=== PATIENT | female | born 1950 ===

== ENCOUNTER 2025-01-19 11:02 | Outpatient (AMB) | payer MEDICARE, OTHER, SELFPAY ==
--- OUTSIDE RECORDS SUMMARY | 2025-01-19 12:22 | XMS_ITS | Clinical Summary ---
Author Organization [facility] ity Address [address] [place] [address] Care Team Providers Care Nuclear Physics Professor Name Role Phone Unavailable Primary Care Provider Unavailabl e Social History Tobacco Use Types Packs/Day Years Used Date Smoking Tobacco: Never Smokeless Tobacco: Never Alcohol Use Standard Drinks/Week Comments Never 0 (1 standard drink = 0.6 oz pur e alcohol) Comments Unknown Sex and Gender Information Value Date Recorded Sex Assigned at Not on file Legal Sex Female 2:05 PM EST Gender Identity Not on file Sexual Orientation Not on file Obstetrics History Last Filed Vital Signs Vital Sign Reading Time Taken Comments Blood Pressure 154/90 11/03/2021 8:14 AM EDT Pulse 80 11/03/2021 8:14 AM EDT Temperature - - Respiratory Rate - - Oxygen Saturation - - Inhaled Oxygen Concentration - - Weight 81 kg (178 lb 9.6 oz) 11/03/2021 8:14 AM EDT Height - - Body Mass Index - - Plan of Treatment Health Maintenance Due Date Last Done Comments Breast Cancer Screening 1950 DTaP,Tdap,and Td Vaccines (1 - Tdap) 1970 Pneumococcal Vaccine: 50+ Ye ars (1 of 1 - PCV) 2001 Zoster Vaccines (1 of 2) 2001 Colorectal Cancer Screening: Colonoscopy 04/26/2022 Falls Risk Assessment 04/26/2022 Hepatitis C Screening 04/26/2022 Osteoporosis Screening (Bone Density Screening) 04/26/2022 Social Influencers of Health Screening 04/26/2022 COVID-19 Vaccine (1 - 2023-2 5 season) 2024 Depression Screening 05/28/2024 Influenza Vaccine (#1) 2025 RSV Immunization Adult Patie nts (1 - 1-dose 75+ series) 2026 HIB Vaccines Aged Out No longer eligi ble based on patient's age to complete this topic HPV Vaccines Aged Out No longer eligi ble based on patient's age to complete this topic Hepatitis A Vaccines Aged Out No long er eligible based on patient's age to complete this topic Hepatitis B Vaccines Aged Out No long er eligible based on patient's age to complete this topic IPV Vaccines Aged Out No longer eligi ble based on patient's age to complete this topic MMR Vaccines Aged Out No longer eligi ble based on patient's age to complete this topic Meningococcal ACWY Vaccine Aged Out N o longer eligible based on patient's age to complete this topic Meningococcal B Vaccine Aged Out No l onger eligible based on patient's age to complete this topic RSV Immunization Patients Un vera 20 months Aged Out No longer eligible b ased on patient's age to complete this topic Varicella Vaccines Aged Out No longer eligible based on patient's age to complete this topic Advance Directives Documents on File Type Date Recorded Patient [employer] Expl anation Health Care Decision (hx) 01/30/2014 AD CONN DIRECTIVE Health Care Decision (hx) 01/30/2014 AD CONN DIRECTIVE Health Care Decision (hx) 01/30/2014 AD CONN DIRECTIVE Health Care Decision (hx) 01/30/2014 AD CONN DIRECTIVE Health Care Decision (hx) 01/30/2014 AD CONN DIRECTIVE Health Care Decision (hx) 01/30/2014 AD CONN DIRECTIVE Health Care Decision (hx) 01/30/2014 AD CONN DIRECTIVE Health Care Decision (hx) 01/30/2014 AD CONN DIRECTIVE Health Care Decision (hx) 01/30/2014 AD CONN DIRECTIVE Health Care Decision (hx) 01/30/2014 AD CONN DIRECTIVE
--- OUTSIDE RECORDS SUMMARY | 2025-01-19 12:22 | XMS_ITS | Clinical Summary ---
Author Organization [facility], Address [address] [place] [id number] Care Team Providers Care Senior Systems Programmer Name Role Phone Nadeen Villasenor MD Primary Care Provider + [phone] Allergies Active Allergy Reactions Criticality Noted Date Comments Baclofen 08/24/2020 Clarithromycin 08/24/2020 Cefaclor 08/24/2020 Chlorthalidone 01/09/2022 Other reaction(s): dehydration/ arf Ciprofloxacin 08/24/2020 Metronidazole 08/24/2020 Glipizide 08/24/2020 Empagliflozin 08/24/2020 Metformin 08/24/2020 Sulfa Antibiotics 08/24/2020 Medications aspirin (ST MERCEDES) 81 MG EC tablet aspirin 81 mg tablet,delay ed release Active atorvastatin (LIPITOR) 20 MG tablet Take 20 mg by mouth 1 (one) time each day 08/02/2020 Active cyclobenzaprine (FLEXERIL) 10 MG tablet TAKE 1 TABLET BY MOUTH THREE TIMES A DAY NEEDED FOR SPASM FOR 14 DAYS 08/10/2020 Active Januvia 50 MG tablet Take 50 mg by mouth 1 (one) time each day 08/04/2020 Active Empagliflozin (Jardiance) 25 MG tablet Take 25 mg by mouth 1 (one) time each day in the morning Active Semaglutide,0.2 5 or 0.5MG/DOS, (Ozempic, 0.25 or 0.5 MG/DOSE,) 2 MG/1.5ML solution pen-injector Inject 0.5 mg under the skin per week Active valsartan (Diovan) 160 MG tablet Take 1 tablet (160 mg total) by mouth 1 (one) time each day 90 tablet 3 05/09/2024 Active Active Problems Problem Noted Date Diagnosed Date Diabetes mellitus 08/24/2020 Hypertension 08/24/2020 Hypercholesterolemia 08/24/2020 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/24/2020 Stage 3a chronic kidney disease 08/24/2020 Essential hypertension Diabetes mellitus without me ntion of complication, type II or unspecified type, not stated as uncontrolled Immunizations Immunization Administration Dates Next Due Influenza, Unspecified 03/24/2021,2019,04/08/2019,04/01/2018 ,04/06/2017 Pfizer SARS-COV-2 05/24/2021 Pneumococcal Conjugate 13-Valent 10/29/2017 Tdap 04/13/2016 Family History Medical History Relation Comments Coronary artery disease Brother Diabetes Brother Heart failure Father Cancer Mother Relation Status Comments Brother Father Mother Social History Tobacco Use Types Packs/Day Years Used Date Smoking Tobacco: Never Comments Unknown Sex and Gender Information Value Date Recorded Sex Assigned at Not on file Legal Sex Female 4:38 PM EST Gender Identity Not on file Sexual Orientation Not on file Last Filed Vital Signs Vital Sign Reading Time Taken Comments Blood Pressure 128/72 02/12/2024 2:05 PM EDT Pulse 70 02/12/2024 2:05 PM EDT Temperature - - Respiratory Rate - - Oxygen Saturation - - Inhaled Oxygen Concentration - - Weight 76.7 kg (169 lb) 08/14/2023 2:01 PM EDT Height - - Body Mass Index - - Plan of Treatment Upcoming Encounters Date Type Department Care Team (Late st Contact Info) Description 02/03/2025 1:45 PM EDT Office Visit [facility] [address] [place] [id number] Johnny Anderson, [address] [place] [address] Health Maintenance Due Date Last Done Comments Breast Cancer Screening 1950 Colorectal Cancer Screening: Annual FOBT 2000 Colorectal Cancer Screening: Colonoscopy 2000 Colorectal Cancer Screening: Sigmoidoscopy 2000 Pneumococcal Vaccine: 50+ Years (2 of 2 - PPSV23, PCV20, or PCV21) 12/24/2017 10/29/2017 Diabetes: Ophthalmology Exam 08/24/2020 Diabetes: Pedal Pulse Checked 08/24/2020 Diabetes: Sensory Foot Exam 08/24/2020 Diabetes: Visual Foot Exam 08/24/2020 Diabetes: Hemoglobin A1C 04/08/2022 01/06/2022, 05/28 Influenza Vaccine (#1) 2025 2, 03/24/2021, 03/15/2020, Additional history exists Pneumococcal Vaccine: Peds (0 to 5 Years) and At-Risk Patients (6 to 49 Years) Discontinued 10/29/2017 Hepatitis B Vaccine Aged Out No longe r eligible based on patient's age to complete this topic Procedures Procedure Name Priority Date/Time Associated Diagnosis Comments HEMOGLOBIN A1C Routine 01/06/2022 11:07 AM EDT Essential hypertension Stage 3a chronic kidney disease (HCC) from Last 3 Months or Most Recently Relevant to Health Maintenance Results * (ABNORMAL) Hemoglobin A1c (01/06/2022 11:07 AM EDT) Hemoglobin A1C 7.8(H) (4.0-5.6) % [facility] Comment: MONITORING: In known diabetic patients, hemoglobin A1c targets should be discussed with health care provider. DIAGNOSTIC USE: The [place] Diabetes [employer] (ADA) and the World Health Organization (WHO) recommend the use of HbA1c to diagnose diabetes using a threshold of 6.5%. Patients who have an HbA1c between 5.7% and 6.4% are considered at increased risk for developing diabetes in the future. CAUTION: Falsely low HbA1c results may be observed in patients with hemolytic anemia, homozygous forms of abnormal hemoglobin (e.g. SS, CC, SC), , recent blood loss or hemoglobin F greater than 7%. Fructosamine may be used as an alternate test in these cases. REFERENCE: ADA: Standards of Medical Care in Diabetes 2020, The Journal of Clinical and Applied Research and Education Volume 43, Supplement 1 Testing performed or reported by [facility] Reference [facility], a Service of [facility], [address] [place] [address] Saray Boyer MD, Clutch Re[employer] [facility]# [id number] Blood specimen (specimen) Venous blood / Unknown 01/06/2022 11:07 AM EDT 01/06/2022 11:09 AM EDT Johnnyjacob Anderson DO LAB BLOOD ORDERABLES Final Resu lt [facility] from Last 3 Months or Most Recently Relevant to Health Maintenance Insurance Medicare [facility] Care Teams Senior Systems Programmer Relationship Specialty Start Date End Date Nadeen Villasenor MD [address] [place] [address] [place] [address] PCP - General Internal Medicine 06/29/20
== END 2025-01-20 11:40 | disposition home or self-care (01) ==
LOC: HO.HMGAL 11:02
PROVIDERS: PCP Family Medicine; Visit Provider Registered Nurse Emergency
DX: J30.89 Other allergic rhinitis (principal)
CPT/HCPCS: 95117; 95165

== ENCOUNTER 2025-03-04 10:28 | Outpatient (AMB) | payer MEDICARE, OTHER, SELFPAY | END 2025-03-04 10:28 | disposition home or self-care (01) | LOC: HO.HMGAL 10:28 | PROVIDERS: PCP Internal Medicine; Visit Provider Registered Nurse Emergency | DX: J30.89 Other allergic rhinitis (principal) | CPT/HCPCS: 95117; 95165 ==

== ENCOUNTER 2025-04-13 11:49 | Outpatient (AMB) | payer MEDICARE, OTHER, SELFPAY | END 2025-04-13 11:49 | disposition home or self-care (01) | LOC: HO.HMGAL 11:49 | PROVIDERS: PCP Internal Medicine; Visit Provider Registered Nurse Emergency | DX: J30.89 Other allergic rhinitis (principal) | CPT/HCPCS: 95117; 95165 ==